=== PATIENT | female | born 1970 | race Hispanic/Latino ===

== ENCOUNTER 2023-11-23 21:50 | Emergency (ER) | payer BC, OTHER ==
[~2023-11-23] VITALS: Ht 160 cm; Wt 68.0 kg
[~2023-11-23 21:50] MED LIST: OMEP20TA PO; OMEP40CA8 PO; SERT50TA PO; SUCR1TAB PO; TRAM50TA PO
[2023-11-23 22:01] VITALS: BP 131/77; PULSE 86; RESP 16; TEMP 97.9; O2SAT 97
[2023-11-23] MEDS ORDERED: MOTRIN ONE (22:30)
[2023-11-23] MEDS: MOTRIN PO STA (22:32)
[2023-11-23 22:34] VITALS: BP 122/76; PULSE 78; RESP 16; TEMP 97.9; O2SAT 96
== END 2023-11-23 22:34 | disposition home or self-care (01) ==
LOC: ER 21:50
DX: S70.12XA Contusion of left thigh, initial encounter (principal); Z98.890 Other specified postprocedural states; X58.XXXA Exposure to other specified factors, initial encounter; Y93.89 Activity, other specified; Y92.89 Other specified places as the place of occurrence of the external cause; Y99.8 Other external cause status
CPT/HCPCS: 99282

== ENCOUNTER 2024-01-04 22:05 | Emergency (ER) | payer OTHER ==
[~2024-01-04] VITALS: Ht 160 cm; Wt 68.0 kg
[2024-01-04 22:20] VITALS: BP 108/79; PULSE 78; RESP 16; TEMP 98.4; O2SAT 96
== END 2024-01-04 22:55 | disposition left against medical advice (07) ==
LOC: ER 22:05
DX: J18.9 Pneumonia, unspecified organism (principal)
CPT/HCPCS: 80053; 83880; 84484; 85025; 99281